=== PATIENT | female | born 1965 | race Caucasian/White ===

== ENCOUNTER 2018-07-13 10:54 | Emergency (ER) | payer MEDICAID, OTHER ==
--- NOTE | 2018-07-13 11:37 | EDPHY ---
HPI/HX/ROS/PE/MDM Narrative: CHIEF COMPLAINT:Palpitations HPI: The patient is a 53-year-old female with no known cardiac disease. She is here with her son who has checked in for psychiatric evaluation. Patient states she has been feeling something is wrong with her heart for at least a month. She feels like it will occasionally stop beating for a second. She denies chest pain. No pain with inspiration. She has not passed out. She states that she was watching a drug commercial on TV which mentioned a-fib and that a-fib could lead to stroke which is what her father had. She has not seen a physician for this complaint because she has been too busy trying to move and buy a house. REVIEW OF SYSTEMS: Aside from elements discussed in the HPI, a comprehensive 10-point review of systems was reviewed and is negative. PMH:None significant. Father had heart disease and CVA. SOCIAL HISTORY: Here with son. Denies drug abuse. PHYSICAL EXAM: General:Patient is alert, in no acute distress. ENT:Eyes are normal to inspection. ENT inspection normal. Neck: Normal inspection. Full range of motion. Respiratory:No respiratory distress. Breath sounds normal bilaterally. Cardiovascular: Regular rate and rhythm. Strong peripheral pulses. Normal cap refill. Abdomen:The abdomen is nontender to palpation. There are no peritoneal signs. There are normal bowel sounds. Back: Normal to inspection. No tenderness to palpation. Skin: Normal color. No rash. Warm and dry. Extremities: Normal appearance. Full range of motion. Neuro: Oriented x3. Normal motor function. Normal sensory function. Psychiatric: Patient is extremely emotionally labile. She is chatting pleasantly one second, then begins sobbing. MDM: This patient presents with palpitations. There are no red flags to suggest PE, TAD and no evidence of PNA, ACS, pericarditis or life-threatening arrhythmia. - Data Points Imaging Results: Imaging Impressions Chest X-Ray 07/13/18 11:36 Impression: No acute abnormality. Laboratory Results: Laboratory Results 07/13/18 11:25 07/13/18 11:25 07/13/18 07/13/18 07/13/18 11:30 11:25 11:25 WBC 7.64 10^3/uL 10^3/uL (3.80-9.50) RBC 4.77 10^6/uL 10^6/uL (4.18-5.33) Hgb 14.6 g/dL g/dL (12.6-16.3) Hct 45.6 % % (38.0-47.0) MCV 95.6 fL fL (81.5-99.8) MCH 30.6 pg pg (27.9-34.1) MCHC 32.0 g/dL L g/dL (32.4-36.7) RDW 12.5 % % (11.5-15.2) Plt Count 385 10^3/uL 10^3/uL (150-400) MPV 9.2 fL fL (8.7-11.7) Neut % (Auto) 65.2 % % (39.3-74.2) Lymph % (Auto) 26.7 % % (15.0-45.0) [place] % (Auto) 5.9 % % (4.5-13.0) Eos % (Auto) 1.0 % % (0.6-7.6) Baso % (Auto) 0.8 % % (0.3-1.7) Nucleat RBC Rel Count 0.0 % % (0.0-0.2) Absolute Neuts (auto) 4.98 10^3/uL 10^3/uL (1.70-6.50) Absolute Lymphs (auto) 2.04 10^3/uL 10^3/uL (1.00-3.00) Absolute Monos (auto) 0.45 10^3/uL 10^3/uL (0.30-0.80) Absolute Eos (auto) 0.08 10^3/uL 10^3/uL (0.03-0.40) Absolute Basos (auto) 0.06 10^3/uL 10^3/uL (0.02-0.10) Absolute Nucleated RBC 0.00 10^3/uL 10^3/uL (0-0.01) Immature Gran % 0.4 % % (0.0-1.1) Immature Gran # 0.03 10^3/uL 10^3/uL (0.00-0.10) Sodium 140 mEq/L mEq/L (135-145) Potassium 4.2 mEq/L mEq/L (3.5-5.2) Chloride 106 mEq/L mEq/L (97-110) Carbon Dioxide 24 mEq/l mEq/l (22-31) Anion Gap 10 mEq/L mEq/L (6-14) BUN 17 mg/dL mg/dL (7-23) Creatinine 0.8 mg/dL mg/dL (0.6-1.0) Estimated GFR > 60 Glucose 90 mg/dL mg/dL (70-100) Calcium 10.0 mg/dL mg/dL (8.5-10.4) POC Troponin I 0.00 ng/mL ng/mL (0.00-0.08) Point of Care Test Results: Chemistry 07/13/18 11:30 POC Troponin I 0.00 ng/mL ng/mL (0.00-0.08) General Time Seen by Provider: 07/13/18 11:22 Initial Vital Signs: Initial Vital Signs Temperature (C) 36.7 C 07/13/18 11:07 Heart Rate 90 07/13/18 11:07 Respiratory Rate 16 07/13/18 11:07 Blood Pressure 132/111 H 07/13/18 11:07 O2 Sat (%) 98 07/13/18 11:07 O2 Delivery Mode Room Air Allergies/Adverse Reactions: No Known Allergies Allergy (Unverified 07/13/18 11:06) Home Medications: Medication Instructions Recorded Ibuprofen [Motrin (*)] 600 mg PO Q6PRN PRN #20 tab 09/12/13 Gabapentin 07/13/18 Departure - Departure Disposition: Home, Routine, Self-Care Clinical Impression: Palpitations Condition: Good Instructions: Heart Palpitations (ED) Additional Instructions: Follow-up with your primary doctor within 72 hours. Return to the Emergency Department for fever, chest pain, shortness of breath, passing out or other worsening of condition. Follow up with a clinical appeals reviewer for further testing, as soon as possible, within one week. Referrals: NONE *PRIMARY CARE P,. [Primary Care Provider] - As per Instructions Dustin Gonzalez MD [Medical Doctor] - As per Instructions
[2018-07-13 11:49] LABS: PLATELET COUNT 385 10^3/uL (150-400)
[2018-07-13 13:30] VITALS: BP 142/90
--- NOTE | 2018-07-13 15:19 | CPEKG ---
Test Reason : OPEN Blood Pressure : / mmHG Vent. Rate : 080 BPM Atrial Rate : 082 BPM P-R Int : 143 ms QRS Dur : 087 ms QT Int : 371 ms P-R-T Axes : 049 040 040 degrees QTc Int : 428 ms Sinus rhythm Confirmed by Keaton Espinosa ([id number] on 07/13/2018 3:18:56 PM Referred By: Keaton Espinosa Confirmed By:Keaton Espinosa
== END 2018-07-13 13:30 | disposition home or self-care (01) ==
DX: R00.2 Palpitations (principal); Z82.49 Family history of ischemic heart disease and other diseases of the circulatory system
CPT/HCPCS: 84484-ER